=== PATIENT | female | born 1990 | race Caucasian/White ===

== ENCOUNTER 2016-12-30 06:00 | Inpatient (IN) ==
[2016-12-30] MEDS ORDERED: miSOPROStol 25 MCG TABLET VG PRN (06:50)
[2016-12-30] MEDS ORDERED: Naloxone 0.4 MG/ML INJ IVP PRN (06:50)
[2016-12-30] MEDS ORDERED: Famotidine 20 MG/2 ML VIAL IVP PRN (06:50)
[2016-12-30] MEDS ORDERED: Ringers Solution, Lactated 1,000 ML ONE (06:53)
[2016-12-30] MEDS ORDERED: Penicillin G Potassium 5,000,000 UNIT in D5% in Water (Mini-Bag+) 100 ML IVPB ONE (06:54)
[2016-12-30] MEDS ORDERED: Ringers Solution, Lactated 1,000 ML IVC SCH (07:00)
[2016-12-30 07:08] LABS: Hematocrit 31.4 % (35.3-44.9); Immature Granulocytes % 0.4 % (0-4); Lymphocytes % 23.3 %; Mean Corpuscular HGB Conc 31.8 g/dL (31.6-35.5); Mean Corpuscular Hemoglobin 26.5 pg (28.0-33.3); Mean Corpuscular Volume 83.1 fL (83.0-100.0); Mean Platelet Volume 10.2 fL (9.4-12.4); Monocytes % 12.7 %; Platelet Count 291 K/mcL (140-400); Red Blood Count 3.78 M/mcL (3.82-4.97); Segmented Neutrophils % 62.1 %
[2016-12-30 07:09] LABS: Basophils # 0.1 K/mcL (0.0-0.2); Basophils % 0.5 %; Eosinophils # 0.1 K/mcL (0.0-0.6); Lymphocytes # 2.3 K/mcL (0.6-4.6); Monocytes # 1.3 K/mcL (0.0-1.3); Neutrophils # 6.1 K/mcL (1.6-8.9)
[2016-12-30 08:19] LABS: Amphetamine Screen,Urine Negative ng/mL (Cutoff=1000); Barbiturate Screen,Urine Negative ng/mL (Cutoff=200); Benzodiazepines Screen,Urine Negative ng/mL (Cutoff=200); Cannabinoid Screen,Urine Negative ng/mL (Cutoff = 50); Cocaine Screen,Urine Negative ng/mL (Cutoff= 300); Opiate Screen,Urine Negative ng/mL (Cutoff=300); Phencyclidine Screen,Urine Negative ng/mL (Cutoff=25)
[2016-12-30] MEDS: Ondansetron 4 MG/2 ML VIAL IVP PRN ×2 (09:15→15:31)
--- NOTE | 2016-12-30 09:21 | OB/GYN History & Physical ---
Date of Encounter: 12/30/16 Time of Encounter: 09:00 Assessment and Plan (1) First in adolescent 16 years of age or older in third trimester Current visit: Yes Status: Acute (2) 39 weeks gestation of Current visit: Yes Status: Acute (3) Elective induction of labor planned Current visit: Yes Status: Acute Plan is to induce with a Dasilva catheter and Cytotec and anticipate vaginal delivery (4) Positive GBS test Current visit: Yes Status: Acute We will start penicillin 5 million units loading dose and 2.5 million units every 4 hours until delivery History of Present Illness HPI: Ms. Malik is a 26 year old female 1 para 0 at 39-4/7 weeks by a 9-0/7 week ultrasound who presented for induction of labor secondary to . Patient's had a unremarkable course and advised her once we got her close to the due date we could induce her if she had not gone into natural labor. Patient denies any leaking of fluid the occasional contractions still having good movement. Patient has a positive rubella positive GBS positive. Patient was started on penicillin. Past Med Surg Social Fam HX - Past Medical History Source: patient, old records reviewed Medical history: no medical history Psychiatric history: anxiety - Past Surgical History Surgical History: no surgical history - Social History Smoking Status: Former smoker Smokeless Tobacco Status: No Alcohol use: none Drug use: none Occupational status: employed Current living situation: Home - Independent Recent Out of Country Travel Within the Last 8 Weeks: No Exposure or Possible Exposure to Illness During Travel: No - Family History Mother Adopted: No Family Member Ethnicity: Non- Living Status: Still Living Hx Family Cardiac Disorders: Yes Hx Family Respiratory Disorders: No Hx Family Cancer: No Hx Family GI Disorders: No Hx Family Genitourinary Disorders: No Hx Family Endocrine Disorder: No Hx Family Musculoskeletal Disorders: No Hx Family Neuromuscular Disorders: No Hx Family Neurologic Disorders: No Hx Family HEENT Disorders: No Hx Family Autoimmune Disorders: No Hx Family Reproductive Disorders: No Hx Family Psychosocial Disorders: No Hx Family Medical Disorders: No - Additional Family History Additional family history: Family history noncontributory Obstetrical History - Pregnancies : 1 Para: 0 Livin Medications and Allergies Omeprazole [PriLOSEC] 40 mg PO DAILY 12/30/16 [History] Hmb819/FA/Omega3/Dha/Fish Oil [ Gummies] 1 tab PO DAILY 12/30/16 [ History] Ranitidine HCl [Acid Cost Clerk] 150 mg PO DAILY 12/30/16 [History] 3 Allergy/AdvReac Type Severity Reaction Status Date / Time levofloxacin [From Levaquin] Allergy Anaphylaxis Verified 12/30/16 06:45 Review of System OB All systems PM: reviewed and no additional remarkable complaints except as stated Exam - Constitutional Constitutional: well developed, well nourished, no acute distress, average body habitus - HEENT HEENT: EOMI, PERRL, Mucus Membranes Moist - Neck Neck exam: full ROM - Lungs Respiratory exam: CTAB - Cardiovascular Cardiovascular exam: RRR - Abdomen Abdomen: Present: bowel sounds normal, gravid - Cervix Dilation: 1 Effacement: 80 Station: -2 - Comments Comments: heart tones 140s reactive occasional contractions seen Results Result Diagrams: 12/30/16 06:45 Abnormal lab results RBC 3.78 M/mcL (3.82-4.97) L 12/30/16 06:45 Hgb 10.0 g/dL (11.5-15.4) L 12/30/16 06:45 Hct 31.4 % (35.3-44.9) L 12/30/16 06:45 MCH 26.5 pg (28.0-33.3) L 12/30/16 06:45 All other labs normal. - VTE Reasons for not Prescribing Prophylaxis: Treatment not Indicated - Low risk for VTE
[2016-12-30] MEDS ORDERED: Epidural Premix (fent/bupiv) 110 ML EP SCH (10:45)
[2016-12-30] MEDS ORDERED: EPHEDrine 50 MG/ML VIAL IVP PRN (10:45)
[2016-12-30] MEDS ORDERED: Ringers Solution, Lactated 500 ML IVC ONE (10:45)
--- NOTE | 2016-12-30 10:45 | Anesthesia Evaluation PreOp ---
Date of Encounter: 12/30/16 Time of Encounter: 10:44 - Past History Planned Operation: KEARA Cardiac History: Denies any Significant Hx Pulmonary History: Denies Any Significant HX WELDER APPRENTICE COMBINATION History: Denies Any Significant HX Other Medical History: Denies Any Significant HX Anesthesia History: No Prior Anesthetic Complications Alcohol Use: none Drug use: none Medications and Allergies Omeprazole [PriLOSEC] 40 mg PO DAILY 12/30/16 [History] Vwg216/FA/Omega3/Dha/Fish Oil [ Gummies] 1 tab PO DAILY 12/30/16 [ History] Ranitidine HCl [Acid College Basketball Coach] 150 mg PO DAILY 12/30/16 [History] 3 Allergy/AdvReac Type Severity Reaction Status Date / Time levofloxacin [From Levaquin] Allergy Anaphylaxis Verified 12/30/16 06:45 - Meds/Allergy Pre-op Review Medications Reviewed: Yes Allergies Reviewed: Yes Beta Blockers on Current Med List: No Anesthesia Results - Labs 12/30/16 06:45 Anesthesia Exam Height: 1.63m Weight: 93.4kg NPO (# of Hours): 5 - HEENT Pupil (Motor): Pupils equal Mallampati: II Teeth: Normal Oral Opening: Greater than 3 - WELDER APPRENTICE COMBINATION LOC: Oriented WELDER APPRENTICE COMBINATION Motor: Normal RUE, Normal LUE, Normal RLE, Normal LLE, Normal Face WELDER APPRENTICE COMBINATION Sensory: Normal: RUE, LUE, RLE, LLE, Face - Cardiac Rhythm: Regular Murmur: None JVD: No Carotid Bruit: No - Pulmonary Breath Sounds: bilateral Clear Respiratory Effort: Symmetrical Anesthesia Assess/Plan ASA Score: 2 Modified Perry Scale for Level of Consciousness: Cooperative, oriented, and tranquil Anesthetic Plan: General (plan b), Regional (plan a) Autologous Blood: Yes Monitoring Plan: Standard Monitors
[2016-12-30] MEDS ORDERED: Epidural Premix (fent/bupiv) 110 ML EP ONE ×3 (10:59→22:19)
--- NOTE | 2016-12-30 11:25 | Anesthesia Procedures ---
Date of Encounter: 12/30/16 Time of Encounter: 11:23 Procedures: Anesthesia - Epidural/Spinal Patient ID/Chart reviewed: Yes Patient examined: Yes OB Eval: Gestational age: 39.4 OB Eval: : 1 OB Eval: Hx Para: 0 OB Eval: Dilated at (cm): 4 OB Eval: Contractions: Non-stressed pattern Consent Obtained: Yes Supplemental Oxygen: None/Room Air Site Prep: Aseptic Technique, Sterile prep and drape, Povidone-Iodine 1% Patient position: upright Local Anesthetic: Lidocaine 1% Amount of Local Anesthetic used: 3 Touhy Needle Gauge: 18 Touhy Needle Depth (cm): 7 Catheter Depth at Skin (cm): 18 Test Dose (1.5% Lido + Epi): Volume given (mls): 5 Test Dose Result: Negative Loading Dose: Other: 5mls of epidural pharm bag premix solution Loading Dose Administered: Thru Catheter Infusion Med: 0.125% Bupivacaine w/ 2 mcg/ml Fentanyl Infusion Rate (mls/hr): 12 ([id number] pcea) Catheter Secured in Place: Tegaderm, Tape Interspace Used: L4-L5 Loss of Resistance (HAMILTON): Yes Blood: No CSF: No Paresthesia: No Procedure: pt tolerated procedure well. no complications. vss. fhr stable.
[2016-12-30] MEDS: Penicillin G Potassium 2,500,000 UNIT in D5% in Water 100 ML IVPB SCH ×3 (11:29→20:06)
--- NOTE | 2016-12-30 12:15 | OB Labor Progress Note ---
Date of Encounter: 12/30/16 Time of Encounter: 12:00 Labor Progress Note - Subjective Subjective: Patient is doing well leiva catheters is out, epidural in place. Second dose of antibiotics have been started not feeling any discomfort at this time nausea vomiting is better - Cervix Cervix: 4/80-2 AROM light mec noted IUPC placed - Heart Tones Heart Tones: heart tones 140s reactive - Birney Birney: IUPC placed contractions every 2 min - Plan Plan: We will start an amnioinfusion with normal saline plan is to anticipate vaginal deliver
[2016-12-30] MEDS ORDERED: 0.9 % Sodium Chloride 1,000 ML ONE (12:19)
--- NOTE | 2016-12-30 14:47 | OB Labor Progress Note ---
Date of Encounter: 12/30/16 Time of Encounter: 14:30 Labor Progress Note - Subjective Subjective: Patient having no complaints at this time feeling the contractions but then uncomfortable at this time - Cervix Cervix: 5/90/0 - Heart Tones Heart Tones: heart tones 140s reactive - [place]: Contractions every 2 minutes - Plan Plan: Continue current care and anticipate vaginal delivery
--- NOTE | 2016-12-30 15:41 | Anesthesia Progress Note ---
Date of Encounter: 12/30/16 Time of Encounter: 15:41 Anesthesia Note - Note Note: 12/30/16 15:41 rate increased to 15ml/hr d/t increased pain during contractions.
[2016-12-30] MEDS ORDERED: *HR* Promethazine 25 MG/ML VIAL IVP PRN (17:46)
--- NOTE | 2016-12-30 17:49 | OB Labor Progress Note ---
Date of Encounter: 12/30/16 Time of Encounter: 17:45 Labor Progress Note - Subjective Subjective: Patient's not feeling contractions but is still very nauseated has been getting some Zofran not really helping we will try Phenergan - Cervix Cervix: 7-8/+1 - Heart Tones Heart Tones: heart tones 140s reactive - Grandy Grandy: Contractions every 2 minutes - Plan Plan: Anticipate vaginal delivery
--- NOTE | 2016-12-30 19:11 | OB Labor Progress Note ---
Date of Encounter: 12/30/16 Time of Encounter: 19:00 Labor Progress Note - Subjective Subjective: patient is doing well nausea is better - Cervix Cervix: anterior lip/100/+2 - Heart Tones Heart Tones: FHT's 140's reactive - [place] Glidden: contractions every 2 min - Plan Plan: anticipate
[2016-12-30] MEDS ORDERED: Lidocaine 1% 20 ML MDV ONE (20:10)
[2016-12-30] MEDS ORDERED: Oxytocin 20 units/ LR 1000 mL 20 UNIT/1,000 ML BAG IVC ONE (20:18)
[2016-12-30] MEDS ORDERED: Oxytocin 20 units/ LR 1000 mL 20 UNIT/1,000 ML BAG IVC SCH (20:45)
--- NOTE | 2016-12-31 00:08 | OB/GYN Procedure Note ---
Delivery - Delivery Date: 12/31/16 Provider: Mark Gonsalves Intrapartum events: meconium Delivery induction: AROM, leiva, misoprostol Delivery augmentation: rupture of membranes, pitocin Delivery monitor: external FHT, external uterine, internal uterine Anesthesia: epidural Estimated Blood Loss: 200 - Infant (s) A Delivery Date: 12/31/16 Delivery Time: 01:00 Presentation: vertex Position: RAMON Gender: Female Viability: Viable Pounds: 8 Ounces: 3 Weight Gram: 3.715 kg at 1 minute: 8 at 5 mins: 9 Shoulder Dystocia: not encountered Specimens collected: cord blood Placenta: spontaneous Cord: 3 umbilical vessels - Repair Episiotomy: none Laceration Description: Periurethral (right), Perineal - 2nd Degree - Complications Delivery complications: none Delivery comments: Patient is a 26-year-old 1 para 0 at 39-4/7 weeks who presented to labor and delivery for induction of labor secondary to with favorable cervix. Patient was induced with a Leiva catheter and Cytotec catheter fell out approximately 2 hours after insertion. Patient received an epidural soon after this and she was artificially ruptured with light meconium-stained fluid noted. Patient was progressing rapidly on her own patient became complete but patient's contractions were 5-7 minutes apart and said this time to stop pushing and augment her with some Pitocin make it the contractions more regular. Once a contractions every 2 minutes with the patient stop pushing again patient was able to then deliver a viable female infant in right occiput anterior presentation at 0100. There was no nuchal cord, there was light meconium, was bulb suctioned on the abdomen, infant weight was 8 lbs. 3 oz. Apgars were 8 at 1 minute, 9 at 5 minutes. Placenta was then delivered spontaneously with a three-vessel cord, electrical line worker Dr. Gonsalves, anesthesia epidural, estimated blood loss 200 mL. Patient had a right periurethral and second-degree perineal laceration the periurethral was closed with a 4-0 Vicryl in a running stitch and the perineal was closed with 3-0 Vicryl in the usual fashion. Cervix and vagina was visualized intact uterus was explored no retained products noted or clots. All needles AND sponge counts were correct 3 patient tolerated the delivery well. She will be observed 2 hours before being taken floor. - Disposition Mom disposition: stable in LDR [place] disposition: stable in LDR
[2016-12-31] MEDS ORDERED: Oxytocin 20 units/ LR 1000 mL 20 UNIT/1,000 ML BAG IVC SCH (02:55)
[2016-12-31] MEDS ORDERED: *HR* HYDROcodone/Acet 5/325 mg TABLET PO PRN (02:55)
[2016-12-31] MEDS ORDERED: Measles/Mumps/Rubella Vacc 0.5 ML VIAL SQ PRN (02:55)
[2016-12-31] MEDS ORDERED: Acetaminophen 325 MG TABLET PO PRN (02:55)
[2016-12-31] MEDS: Prenatal Vit/FA 1 EACH TABLET PO SCH (07:47)
[2016-12-31] MEDS: Ibuprofen 600 MG TABLET PO PRN ×2 (07:47→16:37)
[2017-01-01 08:11] VITALS: BP 113/78
--- NOTE | 2017-01-01 08:29 | Discharge Summary ---
Date of Encounter: 01/01/17 Time of Encounter: 08:27 - Discharge Diagnosis (1) Vaginal delivery Priority: Primary Status: Acute Comments: Meeting all milestones, Pain well managed on po pain medication. , desires discharge. - Discharge Medications Prescriptions: Ibuprofen [Motrin] 600 mg PO Q6HR PRN #60 tab PRN Reason: Cramping Docusate [Colace] 100 mg PO BID #60 Ferrous Sulfate 325 mg PO DAILY #60 tab Home Medications: Omeprazole [PriLOSEC] 40 mg PO DAILY 12/30/16 [History] Ran486/FA/Omega3/Dha/Fish Oil [ Gummies] 1 tab PO DAILY 12/30/16 [ History] Acetaminophen [Tylenol] 650 mg PO Q6HR PRN tab 01/01/17 [Rx] Docusate [Colace] 100 mg PO BID #60 01/01/17 [Rx] Ferrous Sulfate 325 mg PO DAILY #60 tab 01/01/17 [Rx] Ibuprofen [Motrin] 600 mg PO Q6HR PRN #60 tab 01/01/17 [Rx] Vit/FA 1 each PO DAILY tab 01/01/17 [Rx] Allergies/Adverse Reactions: 3 Allergy/AdvReac Type Severity Reaction Status Date / Time levofloxacin [From Levaquin] Allergy Anaphylaxis Verified 12/30/16 06:45 Data Procedures and tests throughout hospitalization: Laboratory Tests 12/30/16 12/30/16 06:45 06:45 WBC 9.8 RBC 3.78 L Hgb 10.0 L Hct 31.4 L MCV 83.1 MCH 26.5 L MCHC 31.8 RDW 13.0 Plt Count 291 MPV 10.2 Immature Gran % 0.4 Seg Neutrophils % 62.1 Lymphocytes % 23.3 Monocytes % 12.7 Eosinophils % 1.0 Basophils % 0.5 Neutrophils # 6.1 Lymphocytes # 2.3 Monocytes # 1.3 Eosinophils # 0.1 Basophils # 0.1 Urine Opiates Screen Negative Ur Barbiturates Screen Negative Ur Phencyclidine Scrn Negative Ur Amphetamines Screen Negative U Benzodiazepines Scrn Negative Urine Cocaine Screen Negative U Marijuana (THC) Screen Negative Date of admission: 12/30/16 06:09 Primary care physician: ADAM Rojo Consults: 12/31/16 02:55 Consult to Epic Cupid Analyst [CONS] Routine Comment: Vaginal delivery, consult needed Discharging clinician: Patricia Toscano Anticipated date of discharge: 01/01/17 - Patient Status Disposition: Home, Self-Care Condition: Good Functional capacity at discharge: independent ambulation Overall status at discharge: patient is back to baseline - Discharge Instructions Follow Up With: Mónica Christensen, RECORD PRESS OPERATOR [Primary Care Provider] - Mark Gonsalves, DO [Partnered Physician] - - Diet and Activity Activity: resume usual activities as tolerated Diet: regular diet Hospital Course Reason for admission: induction of labor, IUP at term Delivery: Episiotomy: none Laceration: 2nd degree Other procedures: none complications: none Discharge diagnosis: IUP at term delivered [place] baby: female Hospital course: Delivery - Delivery Date: 12/31/16 Provider: Mark Gonsalves Intrapartum events: meconium Delivery induction: AROM, leiva, misoprostol Delivery augmentation: rupture of membranes, pitocin Delivery monitor: external FHT, external uterine, internal uterine Anesthesia: epidural Estimated Blood Loss: 200 - Infant (s) A Delivery Date: 12/31/16 Delivery Time: 01:00 Presentation: vertex Position: RAMON Gender: Female Viability: Viable Pounds: 8 Ounces: 3 Weight Gram: 3.715 kg at 1 minute: 8 at 5 mins: 9 Shoulder Dystocia: not encountered Specimens collected: cord blood Placenta: spontaneous Cord: 3 umbilical vessels - Repair Episiotomy: none Laceration Description: Periurethral (right), Perineal - 2nd Degree - Complications Delivery complications: none Delivery comments: Patient is a 26-year-old 1 para 0 at 39-4/7 weeks who presented to labor and delivery for induction of labor secondary to with favorable cervix. Patient was induced with a Leiva catheter and Cytotec catheter fell out approximately 2 hours after insertion. Patient received an epidural soon after this and she was artificially ruptured with light meconium-stained fluid noted. Patient was progressing rapidly on her own patient became complete but patient's contractions were 5-7 minutes apart and said this time to stop pushing and augment her with some Pitocin make it the contractions more regular. Once a contractions every 2 minutes with the patient stop pushing again patient was able to then deliver a viable female infant in right occiput anterior presentation at 0100. There was no nuchal cord, there was light meconium, infant was bulb suctioned on the abdomen, weight was 8 lbs. 3 oz. Apgars were 8 at 1 minute, 9 at 5 minutes. Placenta was then delivered spontaneously with a three-vessel cord, junior sales representative Dr. Gonsalves, anesthesia epidural, estimated blood loss 200 mL. Patient had a right periurethral and second-degree perineal laceration the periurethral was closed with a 4-0 Vicryl in a running stitch and the perineal was closed with 3-0 Vicryl in the usual fashion. Cervix and vagina was visualized intact uterus was explored no retained products noted or clots. All needles AND sponge counts were correct 3 patient tolerated the delivery well. She will be observed 2 hours before being taken floor. - Disposition Mom disposition: stable in PP and appropriate for discharge. Time Attestation: Total time spent providing and/or coordinating discharge services: Time Spent: Less than 30 minutes Exam - Constitutional Vitals: Temp Pulse Resp BP Pulse Ox 98.1 F 87 16 113/78 97 01/01/17 08:10 01/01/17 08:10 01/01/17 08:10 01/01/17 08:10 01/01/17 08:10 General appearance IM: A&O X 3 - Respiratory Respiratory exam: Present: CTAB - Cardiovascular Cardiovascular exam IM: Present: RRR - GI/Abdominal GI/Abdominal exam IM: normal bowel sounds, soft - Uterine Tone: Firm Uterus Position: At Umbilicus - Extremities Exam Extremities exam IM: Present: normal capillary refill, normal inspection - Neurological Exam Neurological exam: normal gait, oriented X3 - Psychiatric Additional comments: Reports good mood.
[2017-01-01] MEDS: Prenatal Vit/FA 1 EACH TABLET PO SCH (09:21)
[2017-01-01] MEDS ORDERED: Lanolin 7 G OINT...G. TP PRN (09:35)
[2017-01-01] MEDS: Ibuprofen 600 MG TABLET PO PRN (09:44)
== END 2017-01-01 16:14 | disposition home or self-care (01) | DRG 774 ==
LOC: 1NENULAB 06:09 → 1NENUOBS 12-31 02:57
PROVIDERS: ADMIT Obstetrics & Gynecology; ATTEND Obstetrics & Gynecology

== ENCOUNTER 2020-01-18 12:22 | Inpatient (IN) ==
[2020-01-18 11:52] LABS: Basophils % 0.4 %; Eosinophils # 0.1 K/mcL (0.0-0.6); Hematocrit 35.6 % (35.3-44.9); Hemoglobin 11.5 g/dL (11.5-15.4); Immature Granulocytes % 0.4 % (0-4); Lymphocytes # 1.8 K/mcL (0.6-4.6); Lymphocytes % 23.5 %; Mean Corpuscular HGB Conc 32.3 g/dL (31.6-35.5); Mean Corpuscular Hemoglobin 28.4 pg (28.0-33.3); Mean Corpuscular Volume 87.9 fL (83.0-100.0); Mean Platelet Volume 10.2 fL (9.4-12.4); Monocytes # 0.8 K/mcL (0.0-1.3); Monocytes % 10.4 %; Platelet Count 269 K/mcL (140-400); Red Blood Count 4.05 M/mcL (3.82-4.97); Red Cell Distribution Width 13.4 % (11.5-14.5); Segmented Neutrophils % 64.3 %; White Blood Count 7.8 K/mcL (4.3-11.1)
[~2020-01-18 12:22] MED LIST: *HR* FentaNYL (PF) 100 MCG/2 ML VIAL IVP PRN; Azithromycin 500 MG in 0.9 % Sodium Chloride 250 ML IVPB ONE; Famotidine 20 MG/2 ML VIAL IVP PRN; Lidocaine 1% 20 ML MDV INFILT PRN; Metoclopramide 10 MG/2 ML VIAL IVP PRN; Naloxone 0.4 MG/ML INJ IVP PRN; Ondansetron 4 MG/2 ML VIAL IVP PRN
[2020-01-18] MEDS ORDERED: Penicillin G Potassium 5,000,000 UNIT in 0.9 % Sodium Chloride Mini Bag 100 ML IVPB ONE (12:24)
[2020-01-18] MEDS ORDERED: Oxytocin 20 units/ LR 1000 mL 20 UNIT/1,000 ML BAG IVC SCH ×3 (12:30→23:28)
[2020-01-18] MEDS ORDERED: miSOPROStoL 25 MCG TABLET PO PRN (12:31)
[2020-01-18] MEDS: Ringers Solution, Lactated 1,000 ML IVC SCH ×2 (13:11→16:54)
[2020-01-18 13:59] LABS: Amphetamine Screen,Urine Negative ng/mL (Cutoff=1000); Barbiturate Screen,Urine Negative ng/mL (Cutoff=200); Benzodiazepines Screen,Urine Negative ng/mL (Cutoff=200); Cannabinoid Screen,Urine Negative ng/mL (Cutoff = 50); Cocaine Screen,Urine Negative ng/mL (Cutoff= 300); Opiate Screen,Urine Negative ng/mL (Cutoff=300); Phencyclidine Screen,Urine Negative ng/mL (Cutoff=25)
[2020-01-18] MEDS ORDERED: Ondansetron 4 MG/2 ML VIAL IVP PRN (15:41)
[2020-01-18] MEDS ORDERED: Naloxone 0.4 MG/ML INJ IVP PRN (15:41)
[2020-01-18] MEDS ORDERED: Ropivacaine/PF 0.2% 20 ML VIAL EP ONE (15:41)
[2020-01-18] MEDS ORDERED: EPHEDrine 50 MG/ML VIAL IVP PRN (15:41)
[2020-01-18] MEDS ORDERED: Epidural Premix (fent/bupiv) 110 ML EP SCH (15:45)
[2020-01-18] MEDS ORDERED: Penicillin G Potassium 2,500,000 UNIT/105 ML MLS IVPB SCH (16:00)
[2020-01-18] MEDS ORDERED: Ropivacaine/PF 0.2% 20 ML VIAL ONE (16:27)
[2020-01-18] MEDS ORDERED: Rho Immune Globulin 1,500 UNIT SYRINGE IM PRN (23:28)
[2020-01-18] MEDS ORDERED: Benzocaine/Menthol 56 GM AEROSOL SPRAY TP PRN (23:28)
[2020-01-18] MEDS ORDERED: Lanolin 7 G OINT...G. TP PRN (23:28)
[2020-01-18] MEDS ORDERED: Acetaminophen 325 MG TABLET PO PRN (23:28)
[2020-01-18] MEDS ORDERED: *HR* HYDROcodone/Acet 5/325 mg TABLET PO PRN (23:28)
[2020-01-19 07:07] LABS: Basophils % 0.3 %; Eosinophils # 0.1 K/mcL (0.0-0.6); Eosinophils % 0.4 %; Immature Granulocytes % 0.3 % (0-4); Lymphocytes # 2.4 K/mcL (0.6-4.6); Lymphocytes % 20.5 %; Mean Corpuscular HGB Conc 32.4 g/dL (31.6-35.5); Mean Corpuscular Hemoglobin 28.2 pg (28.0-33.3); Mean Corpuscular Volume 87.2 fL (83.0-100.0); Mean Platelet Volume 10.3 fL (9.4-12.4); Monocytes # 1.3 K/mcL (0.0-1.3); Monocytes % 11.2 %; Neutrophils # 7.9 K/mcL (1.6-8.9); Platelet Count 237 K/mcL (140-400); Red Cell Distribution Width 13.4 % (11.5-14.5); Segmented Neutrophils % 67.3 %
[2020-01-19 07:08] LABS: White Blood Count 11.8 K/mcL (4.3-11.1)
[2020-01-19] MEDS: Ibuprofen 600 MG TABLET PO PRN ×2 (08:44→16:26)
[2020-01-19] MEDS ORDERED: Prenatal Vit/FA 1 EACH TABLET PO SCH ×2 (09:00)
[2020-01-19 16:22] VITALS: BP 111/72
== END 2020-01-19 18:21 | disposition home or self-care (01) | DRG 807 ==
LOC: 1NENULAB → 1NENUOBS 23:26
PROVIDERS: ADMIT Obstetrics & Gynecology; ATTEND Obstetrics & Gynecology